=== PATIENT | female | born 1990 | race Caucasian/White ===

== ENCOUNTER → 2018-02-21 | Outpatient (CLI) | payer MEDICARE, MEDICAID ==
--- NOTE | 2018-02-21 17:40 | Diagnostic Imaging Report ---
INDICATION: dates. TECHNIQUE: Multiple real-time grayscale images were obtained over the gravid uterus. COMPARISON: None. FINDINGS: Single live intrauterine is identified with a heart rate of 158 beats per minute. The fetus is in breech presentation. The amniotic fluid volume levels are normal. The placenta is anterior and has a normal appearance. There is no previa or abruption. The spine is poorly visualized due to positioning. Otherwise, no anomalies are seen. Visualized anatomy is unremarkable. Biometric measurements are symmetric. IMPRESSION: 1. Single live intrauterine of 21 weeks 6 days with a due date of 06/28/2018. 2. Breech presentation. 3. Poorly visualized spine, likely due to lie. Biometrical measurements are as follows: Biparietal 4.83 cm, age 20 weeks 5 days. Head circumference 19.56 cm, age 21 weeks 6 days. Abdominal circumference 17.14 cm, age 22 weeks 1 days. Femur length 3.89 cm, age 22 weeks 4 days. Sonographic estimate age: 21 weeks 6 days. Sonographic estimated date of delivery: 06/28/18. Estimated Weight: 480 gm (+/- 70 gm). LMP percentile: 75%. heart rate: 158 beats per minute. number: 1 of 1. Dictated by: Dictated on workstation # [id number]
== END ==
LOC: RAD 14:50
PROVIDERS: ATTEND Obstetrics & Gynecology
DX: O32.1XX0 Maternal care for breech presentation, not applicable or unspecified (principal); Z3A.21 21 weeks gestation of pregnancy
CPT/HCPCS: 76805

== ENCOUNTER → 2018-04-09 | Outpatient (CLI) | payer MEDICARE, MEDICAID ==
--- NOTE | 2018-04-09 18:55 | Diagnostic Imaging Report ---
INDICATION: patient, limited followup study performed to evaluate anatomy not visualized on the previous study. Limited OB sonography performed and compared to the prior study of 02/21/2018. FINDINGS: A single live intrauterine fetus is seen in cephalic presentation with heart rate of 169 beats per minute. Placenta is anterior and grade 1 with no evidence of previa. Views of the spine were re-attempted but were not well seen due to position. Visualized portions of the spine, however, appeared unremarkable. IMPRESSION: Limited views demonstrate poor visualization of the spine but no definite abnormality. Cephalic presentation is noted with heart rate of 169 beats per minute. Dictated by: Dictated on workstation # [id number]
== END ==
LOC: RAD 15:36
PROVIDERS: ATTEND Obstetrics & Gynecology
DX: Z36.89 Encounter for other specified antenatal screening (principal); Z3A.00 Weeks of gestation of pregnancy not specified
CPT/HCPCS: 76805

== ENCOUNTER 2018-06-23 02:06 | Inpatient (IN) | payer MEDICARE, MEDICAID ==
[~2018-06-23] VITALS: Ht 167.6 cm; Wt 114.5 kg
[2018-06-23] VITALS (21 sets, daily range): BP systolic 103–175; BP diastolic 62–100
--- NOTE | 2018-06-23 02:09 | NUR ---
KRISTIN MARRERO presented to unit via WC from ED REGISTRATION, accompanied by STAFF AND S/O, with c/o CONTRACTIONS. KRISTIN MARRERO weighed, gowned, voided, and to bed. EFHM and TOCO applied, VS taken. KRISTIN MARRERO oriented to bed controls, call light, TV, heat, and A/C controls. UP CHANGING AND SUPPLYING U/A. ASSESSMENTS TO FOLLOW PER JUAN CARLOS HOWARD.
--- NOTE | 2018-06-23 02:40 | NUR ---
REPORT OF PT ARRIVAL AND ASSESSMENT. WILL ADMIT FOR LABOR.
[2018-06-23] MEDS ORDERED: D5 LR IV SOLUTION 1,000 ML IV ONE (02:42)
[2018-06-23] MEDS ORDERED: PREN-142 PO (03:20)
[2018-06-23] MEDS ORDERED: D5 LR IV SOLUTION 1,000 ML IV SCH (03:30)
[2018-06-23 03:47] LABS: BASOPHILS % (AUTO) 0 % (0-10); EOSINOPHILS # (AUTO) 0.1 10^3/uL (0.0-0.3); EOSINOPHILS % (AUTO) 1 % (0-10); HEMATOCRIT 33 % (35-52); HEMOGLOBIN 11.1 G/DL (11.5-16.0); LYMPHOCYTES % (AUTO) 24 % (12-44); MEAN CORPUSCULAR HEMOGLOBIN 31 PG (25-34); MEAN CORPUSCULAR HGB CONC 33 G/DL (32-36); MEAN CORPUSCULAR VOLUME 94 FL (80-99); MEAN PLATELET VOLUME 10.7 FL (7.4-10.4); MONOCYTES # (AUTO) 0.8 X 10^3 (0.0-1.0); MONOCYTES % (AUTO) 7 % (0-12); NEUTROPHILS # (AUTO) 8.5 X 10^3 (1.8-7.8); NEUTROPHILS % (AUTO) 69 % (42-75); PLATELET COUNT 190 10^3/uL (130-400); RED CELL DISTRIBUTION WIDTH 13.5 % (10.0-14.5); WHITE BLOOD COUNT 12.4 10^3/uL (4.3-11.0)
--- NOTE | 2018-06-23 03:50 | NUR ---
REPORT TO DR PÉREZ ON SVE. NO NEW ORDERS AT THIS TIME.
--- NOTE | 2018-06-23 05:57 | NUR ---
[facility] CALLED FOR EPIDURAL PER PT REQUEST.
[2018-06-23] MEDS ORDERED: CATHETER FLUSH 10 ML SYR IV SCH (06:00)
--- NOTE | 2018-06-23 06:00 | NUR ---
CALL TO DR PÉREZ TO REPORT 5CM DILATION AND THAT [facility] HAD BEEN CALLED FOR EPIDURAL.
--- NOTE | 2018-06-23 06:07 | NUR ---
SVE DONE. PT 7 CM AND FE[address] PUSHY. DR PÉREZ NOTIFIED AND IS HEADING TO HOSPITAL FOR DELIVERY.
--- NOTE | 2018-06-23 06:20 | NUR ---
DR PÉREZ TO PT ROOM FOR DELIVERY.
[2018-06-23] MEDS ORDERED: PHYTONADIONE (VIT. K) NEONATAL 1 MG/0.5 ML AMP ONE (06:21)
[2018-06-23] MEDS ORDERED: OXYTOCIN/NORMAL SALINE 500 ML IV ONE (06:23)
[2018-06-23] MEDS ORDERED: LIDOCAINE/EPI 2% 1:200,00 (XYLOCAINE) 10 ML VIAL ONE (06:33)
[2018-06-23] MEDS ORDERED: OXYTOCIN/NORMAL SALINE 500 ML IV SCH (06:52)
--- OUTSIDE RECORDS SUMMARY | 2018-06-23 06:52 | XMS REPORT ---
Author Author MILLER CURTIS Organization [facility] [address] Address [address] [place] [address] Care Team Providers Care Refrigeration Houseman Name Role Phone MILLER CURTIS Unavailable PROBLEMS Unknown Problems ALLERGIES No Information ENCOUNTERS Encounter Location Date Diagnosis [facility] [address] [place] [address] [facility] [address] [place] [address] Feb, [facility] [place] [address] [id number] [place] [address] Feb [facility] [address] [id number] [place] [address] Jan Dental examination Z01.20 and Caries K02.9 [facility] [address] [id number] [place] [address] Jan Open fracture of tooth, initial encounter S02.5XXB and Pain, dental K08.89 [facility] [address] [id number] [place] [address] Aug Dental abscess K04.7 IMMUNIZATIONS No Known Immunizations SOCIAL HISTORY Never Assessed REASON FOR VISIT Scheduling appointment PLAN OF CARE VITAL SIGNS MEDICATIONS Unknown Medications RESULTS No Results PROCEDURES No Known procedures INSTRUCTIONS MEDICATIONS ADMINISTERED No Known Medications MEDICAL (GENERAL) HISTORY Type Description Date Medical History bipolar disorder Medical History schizophrenia Medical History ADHD Surgical History Rt knee surgery 2003 Hospitalization History No Hospitalization history information
--- OUTSIDE RECORDS SUMMARY | 2018-06-23 06:52 | XMS REPORT ---
Author Author ERX TERRY Organization [facility] Address [address] [place] [address] Care Team Providers Care Automotive Accessory Installer Name Role Phone REX TERRY Unavailable PROBLEMS Unknown Problems ALLERGIES No Information ENCOUNTERS Encounter Location Date Diagnosis [facility] [address] [place] [address] Feb, [facility] [address] [id number] [place] [address] Feb [facility] [address] [id number] [place] [address] Jan Dental examination Z01.20 and Caries K02.9 [facility] [address] [id number] [place] [address] Jan Open fracture of tooth, initial encounter S02.5XXB and Pain, dental K08.89 [facility] [address] [id number] [place] [address] Aug Dental abscess K04.7 IMMUNIZATIONS No Known Immunizations SOCIAL HISTORY Never Assessed REASON FOR VISIT Requests return call PLAN OF CARE VITAL SIGNS MEDICATIONS Medication Instructions Dosage Frequency Start Date End Date Duration Status Amoxicillin 500 MG Orally every 8 hrs 1 capsule 8h Jan, 7 days Active RESULTS No Results PROCEDURES No Known procedures INSTRUCTIONS MEDICATIONS ADMINISTERED No Known Medications MEDICAL (GENERAL) HISTORY Type Description Date Medical History bipolar disorder Medical History schizophrenia Medical History ADHD Surgical History Rt knee surgery 2003 Hospitalization History No Hospitalization history information
--- OUTSIDE RECORDS SUMMARY | 2018-06-23 06:52 | XMS REPORT ---
Author Author REX TERRY Organization [facility] Address [address] [place] [address] Care Team Providers Care Dean [employer] Name Role Phone REX TERRY Unavailable PROBLEMS Unknown Problems ALLERGIES Substance Reaction Event Type Date Status Latex Unknown Non Drug Allergy Jan, Active ENCOUNTERS Encounter Location Date Diagnosis [facility] [address] [id number] [place] [address] Feb [facility] [address] [id number] [place] [address] Jan Dental examination Z01.20 and Caries K02.9 [facility] [address] [id number] [place] [address] Jan Open fracture of tooth, initial encounter S02.5XXB and Pain, dental K08.89 [facility] [address] [id number] [place] [address] Aug Dental abscess K04.7 IMMUNIZATIONS No Known Immunizations SOCIAL HISTORY Never Assessed REASON FOR VISIT JACQUELINE PLAN OF CARE Activity Details Follow Up prn Reason:TE #22 VITAL SIGNS Height 67 in 2018-02-13 Blood pressure systolic 111 mmHg 2018-02-13 Blood pressure diastolic 67 mmHg 2018-02-13 MEDICATIONS Medication Instructions Dosage Frequency Start Date End Date Duration Status Amoxicillin 500 MG Orally every 8 hrs 1 capsule 8h Jan, 7 days Active Ibuprofen 200 MG Orally Three times a day 1 tablet with food or milk as needed 8h Not-Taking Tylenol 325 MG Orally every 4 hrs 1 tablet as needed 4h Active RESULTS No Results PROCEDURES Procedure Date Ordered Result Body Site LTD ORAL EVALUATION - PROBLEM FOCUS Feb 13, 2018 INTRAORL-PERIAPICAL 1 FILM [id number] Feb 13, 2018 INSTRUCTIONS MEDICATIONS ADMINISTERED No Known Medications MEDICAL (GENERAL) HISTORY Type Description Date Medical History bipolar disorder Medical History schizophrenia Medical History ADHD Surgical History Rt knee surgery 2004 Hospitalization History No Hospitalization history information
--- OUTSIDE RECORDS SUMMARY | 2018-06-23 06:52 | XMS REPORT ---
Demographics Address [address] [address] Preferred Language Unknown Marital Status Unknown Moravian Affiliation Unknown Race Unknown Ethnic Group Unknown Author Author [facility] Address [address] [place] [address] Care Team Providers Care First Officer And Flight Instructor Name Role Phone ARMINDA LUCERO Unavailable PROBLEMS Unknown Problems ALLERGIES No Known Allergies ENCOUNTERS Encounter Location Date Diagnosis [facility] [address] [id number] [place] [address] Jan Dental examination Z01.20 and Caries K02.9 [facility] [address] [id number] [place] [address] Jan Open fracture of tooth, initial encounter S02.5XXB and Pain, dental K08.[address] [id number] [place] [address] Aug Dental abscess K04.7 IMMUNIZATIONS No Known Immunizations SOCIAL HISTORY Never Assessed REASON FOR VISIT Tooth pain--broke tooth 2 days ago lower left side---ANITA ford PLAN OF CARE Activity Details Follow Up prn Reason: VITAL SIGNS Height 67 in 2018-02-13 Weight 226 lbs 2018-02-13 Temperature 97.1 degrees Fahrenheit 2018-02-13 Heart Rate 88 bpm 2018-02-13 Respiratory Rate 18 2018-02-13 BMI 35.39 kg/m2 2018-02-13 Blood pressure systolic 112 mmHg 2018-02-13 Blood pressure diastolic 68 mmHg 2018-02-13 MEDICATIONS Medication Instructions Dosage Frequency Start Date End Date Duration Status Tylenol 325 MG Orally every 4 hrs 1 tablet as needed 4h Active RESULTS No Results PROCEDURES No Known procedures INSTRUCTIONS MEDICATIONS ADMINISTERED No Known Medications MEDICAL (GENERAL) HISTORY Type Description Date Medical History bipolar disorder Medical History schizophrenia Medical History ADHD Surgical History Rt knee surgery 2004 Hospitalization History No Hospitalization history information
--- OUTSIDE RECORDS SUMMARY | 2018-06-23 06:53 | XMS REPORT ---
Author Author RICKI CASTRO Organization [facility] [place] Address [address] [place] [address] Care Team Providers Care Computerized Mill Mill Recorder Name Role Phone RICKI CASTRO Unavailable PROBLEMS Unknown Problems ALLERGIES No Known Allergies ENCOUNTERS Encounter Location Date Diagnosis [facility] [address] [id number] [place] [address] Aug Dental abscess K04.7 IMMUNIZATIONS No Known Immunizations SOCIAL HISTORY Never Assessed REASON FOR VISIT Tooth pain, Pt having tooth pain X 2-3. M.JACQUELIN [place] PLAN OF CARE Activity Details Follow Up prn Reason: VITAL SIGNS Height 67 in 2017-09-13 Weight 208.5 lbs 2017-09-13 Temperature 98.6 degrees Fahrenheit 2017-09-13 Heart Rate 68 bpm 2017-09-13 Respiratory Rate 18 2017-09-13 Oximetry 99 % 2017-09-13 BMI 32.65 kg/m2 2017-09-13 Blood pressure systolic 108 mmHg 2017-09-13 Blood pressure diastolic 70 mmHg 2017-09-13 MEDICATIONS Medication Instructions Dosage Frequency Start Date End Date Duration Status Clindamycin HCl 300 MG Orally every 8 hrs 1 capsule 8h Aug,Aug 07 days Active Tylenol 325 MG Orally every 4 hrs 1 tablet as needed 4h Active Ibuprofen 200 MG Orally Three times a day 1 tablet with food or milk as needed 8h Active RESULTS No Results PROCEDURES No Known procedures INSTRUCTIONS MEDICATIONS ADMINISTERED No Known Medications MEDICAL (GENERAL) HISTORY Type Description Date Medical History bipolar disorder Medical History schizophrenia Medical History ADHD Surgical History Rt knee surgery 2003
[2018-06-23] MEDS ORDERED: TETANUS,DIPTH,PERTUSS P/F (BOOSTRIX) 0.5 ML VIAL IM ONE (07:00)
[2018-06-23] MEDS ORDERED: MEASLES,MUMPS,RUBELLA 1 EA INJ SC ONE (07:00)
[2018-06-23] MEDS ORDERED: oxyCODONE/APAP 5/325MG (PERCOCET 5) TABLET PO PRN (07:00)
[2018-06-23] MEDS ORDERED: BENZOCAINE/MENTHOL (DERMOPLAST) 56 ML CAN TP PRN (07:00)
--- NOTE | 2018-06-23 07:04 | History & Physical ---
History and Physical Date Seen by Provider: Jun 23, 2018 Time Seen by Provider: 06:31 This patient is a 28-year-old white female patient of Dr. Rodriguez who presented in active labor. She has had no problems with his to date. Rupture membranes was confirmed after delivery. GBS culture was negative. I was called to attend patient has Dr. Rodriguez was not available. At the time of my Arrival patient was complaining of a strong urge to push. Allergies are to latex Medications vitamins Medical social and surgical histories are per the antepartum record HEENT exam is normal except for exceedingly poor dentition Neck supple no lymphadenopathy no thyromegaly Abdomen gravid soft nontender nondistended Extremities show no clubbing or cyanosis. Pelvic exam when I arrived showed a cervix dilated presenting part was at the + 3 station vertex. Patient was complaining of strong urge to push Laboratory Tests 06/23/18 02:50 Assessment and plan term at 37 weeks gestation now stage II labor with delivery eminent. 37 week gestation in active labor Allergies and Home Medications Allergies Coded Allergies: latex (Verified Allergy, Severe, RASH, 06/23/18) Home Medications Vit No.124/Iron/FA 1 Each Tablet, 1 EACH PO DAILY, (Reported) Patient Home Medication List Home Medication List Reviewed: Yes Clinical Quality Measures DVT/VTE Risk/Contraindication: Risk Factor Score Per Nursin RFS Level Per Nursing on Admit: 2=Moderate MORALES PÉREZ MD Jun 23, 2018 07:03
[2018-06-23] MEDS ORDERED: DOCU100C37 PO (07:06)
[2018-06-23] MEDS ORDERED: IBUP-1780 PO (07:06)
--- NOTE | 2018-06-23 07:07 | Discharge Instructions ---
Discharge Instructions Discharge Medications New, Converted or Re-Newed RX: RX on Chart Patient Instructions Patient Instructions: As directed Return to The Hospital For: As directed Activity & Diet Discharge Diet: No Restrictions Activity as Tolerated: No Orders-Post D/C & Referrals Follow Up Appt: Call to make follow up appt. for patient in [address] Swanson. Activity Per routine post vaginal delivery instructions. Please call in RX to patient pharmacy. Diet as tolerated Patient may shower or tub bathe as desired. MORALES PÉREZ MD Jun 23, 2018 07:07
[2018-06-23] MEDS ORDERED: FLU QUADRIvalent (5+ YOA) 2018-2019 (AFLURIA) 0.5 ML IM ONE (07:30)
--- NOTE | 2018-06-23 07:45 | NUR ---
THIS RN TO BEDSIDE WITH PREVIOUS RN, SELF INTRODUCED. PT VOICES THE NEED TO GET UP TO THE BATHROOM. PT AMBULATES SELF TO BATHROOM WITH STAND BY ASSIST. + VOID, + PERICARE PER PT. PT BACK TO BED. RECOVERY CONTINUES.
[2018-06-23 07:55] LABS: AMPHETAMINE SCREEN, URINE NEGATIVE (NEGATIVE); BARBITURATE SCREEN URINE NEGATIVE (NEGATIVE); BENZODIAZEPINES SCREEN URINE NEGATIVE (NEGATIVE); CANNABINOID SCREEN, URINE NEGATIVE (NEGATIVE); COCAINE SCREEN URINE NEGATIVE (NEGATIVE); METHADONE STAT NEGATIVE (NEGATIVE); METHAMPHETAMINE SCREEN URINE S NEGATIVE (NEGATIVE); OPIATE SCREEN URINE NEGATIVE (NEGATIVE); OXYCODONE STAT NEGATIVE (NEGATIVE); PROPOXYPHENE STAT NEGATIVE (NEGATIVE); TRICYCLIC ANTIDEPRESSANTS SCRE NEGATIVE (NEGATIVE)
--- NOTE | 2018-06-23 09:25 | NUR ---
PT TRANSFERRED FROM -319 TO -310 VIA AMBULATORY IN STABLE CONDITION ACC BY THIS RN AND S/O. PT TO BED. TEACHING DONE RE: ROOM SURROUNDINGS, ROOM SERVICE, POC. PT VERBALIZES UNDERSTANDING. INITIAL SHIFT ASSESSMENT COMPLETED; SEE INTERVENTION FOR FURTHER. CALL LIGHT WITHIN REACH, NO NEEDS VOICED AT THIS TIME.
[2018-06-23] MEDS: KETOROLAC 30 MG/ML VIAL IV SCH ×2 (09:28→17:32)
--- NOTE | 2018-06-23 09:40 | OPERATIVE REPORT ---
DATE OF SERVICE: 06/23/2018 DELIVERY NOTE The patient delivered by term spontaneous vaginal delivery a viable female infant with Apgars of 8 and 9 at 1 and 5 minutes respectively, weight of 7 pounds, time of 0635 and a cord blood pH that is pending. The was delivered over an intact perineum with no analgesia. The was bulb suctioned on delivery of the head and again on completion of delivery. There was moderate meconium noted. However, the baby had no sequelae to that. The had spontaneous cry, moved all extremities, had excellent tone and reflexes and the heart rate were well over 100s during the labor and during delivery and immediately after delivery. The umbilical cord was doubly clamped, father cut the cord and the baby was passed to mom's abdomen. The placenta delivered very promptly spontaneously Mojica. It was normal with a 3-vessel cord. The cervix, vagina, rectum and perineum were examined and found intact. There were a couple small minor abrasions anterior to the urethra. These were hemostatic and did not require repair. ESTIMATED BLOOD LOSS: Around 150 mL. Sponge and needle counts were correct on completion of delivery and the exam. The patient remained in the LDR for recovery. The baby remained with the mom. Job ID: [id number] DocumentID: [id number] Dictated Date: 06/23/2018 07:12:47 Dairy Associate Date: 06/23/2018 09:40:05 Dictated By: MORALES PÉREZ MD
--- NOTE | 2018-06-23 10:53 | NUR ---
PT IN THE NURSERY SEEING AT THIS TIME.
--- NOTE | 2018-06-23 13:29 | NUR ---
PT IN BED, HOLDING . IV DC'D; SEE INTERVENTION FOR FURTHER. NO NEEDS VOICED. CALL LIGHT WITHIN REACH.
[2018-06-23] MEDS: DOCUSATE SODIUM 100 MG (COLACE) CAP PO SCH ×2 (14:35→21:00)
--- NOTE | 2018-06-23 15:02 | NUR ---
PT AMBULATES SELF OFF UNIT.
--- NOTE | 2018-06-23 15:18 | NUR ---
PT RETURNS BACK TO UNIT.
--- NOTE | 2018-06-23 17:06 | NUR ---
PT SITTING UP ON THE SIDE OF THE BED, VS OBTAINED. VISITORS PRESENT. NO NEEDS VOICED. PT DENIES WANTING MOTRIN OR THE FLU VACCINE.
--- NOTE | 2018-06-23 17:57 | NUR ---
PT INFANT WITH ASSISTANCE PER Abdullahi MIR RN.
--- NOTE | 2018-06-23 18:55 | NUR ---
PT IN BED, TALKING ON THE PHONE, DENIES ANY NEEDS AT THIS TIME.
[2018-06-24 00:45] VITALS: BP 97/65
[2018-06-24] MEDS: KETOROLAC 30 MG/ML VIAL IV SCH ×2 (01:00→10:40)
[2018-06-24 05:15] VITALS: BP 97/53
--- NOTE | 2018-06-24 08:32 | NUR ---
PT IN THE NURSERY, SEEING .
--- NOTE | 2018-06-24 08:44 | NUR ---
PT OUT IN THE HALLWAYS, REQUESTING TO GO DOWNSTAIRS SINCE INFANT IS IN THE NURSERY. PT DENIES THE NEED FOR COLACE, VOICES THAT SHE'S ALREADY HAD A BM AROUND 0600 THIS AM. PT ALSO DENIES MOTRIN, NO PAIN. PT RETURNS TO ROOM TO GET S/O AND THEN AMBULATES OFF UNIT.
[2018-06-24] MEDS: DOCUSATE SODIUM 100 MG (COLACE) CAP PO SCH (08:45)
[2018-06-24] MEDS: IBUPROFEN 800 MG (MOTRIN) TAB PO SCH ×2 (08:45→13:00)
--- NOTE | 2018-06-24 09:11 | NUR ---
PT RETURNS BACK TO UNIT, DR. PÉREZ HERE AND FOLLOWING PT BACK TO ROOM TO SEE PT.
--- NOTE | 2018-06-24 09:17 | Progress Note-Standard ---
Standard Progress Note Progress Notes/Assess & Plan Date Seen by a Provider: Jun 24, 2018 Time Seen by a Provider: 09:16 Progress/Assessment & Plan This patient is without complaint. She is ablating, voiding, tolerating oral intake well has good pain control. Vital Signs Date Time Temp Pulse Resp B/P (MAP) Pulse Ox O2 Delivery O2 Flow Rate FiO2 06/24/18 05:15 97.6 80 16 97/53 (68) 97 06/24/18 00:45 97.8 79 16 97/65 (76) 98 06/23/18 20:10 97.9 87 18 103/63 (76) 98 06/23/18 17:06 98.1 97 18 114/82 (93) 99 Room Air 06/23/18 12:21 97.5 107 18 109/69 (82) 97 Room Air 06/23/18 09:25 97.6 I & O 06/24/18 07:00 Intake Total 1400 mL Balance 1400 ml Vital signs are stable. Patient is afebrile. Fundus is firm below the umbilicus and nontender. Claudio show clubbing or cyanosis. There is no Homans sign. Assessment and plan day number 1 status post term spontaneous vaginal delivery doing well. Plan is routine convalescence care Final Diagnosis 39 week spontaneous vaginal delivery MORALES PÉREZ MD Jun 24, 2018 09:17
--- NOTE | 2018-06-24 10:05 | NUR ---
PT INFANT. DR. VERNON AT THE BEDSIDE, DISCUSSING CARE. PT DENIES ANY NEEDS AT THIS TIME.
[2018-06-24 10:46] VITALS: BP 116/78
--- NOTE | 2018-06-24 10:50 | NUR ---
PT SITTING UP ON THE SIDE OF THE BED UPON THIS RN ENTERING ROOM. VS OBTAINED. INITIAL SHIFT ASSESSMENT COMPLETED; SEE INTERVENTION FOR FURTHER. PT DENIES ANY NEEDS AT THIS TIME.
--- NOTE | 2018-06-24 11:28 | NUR ---
PT AMBULATES OFF UNIT WITH S/O.
--- NOTE | 2018-06-24 15:00 | NUR ---
PT SITTING ON THE SIDE OF THE BED, HOLDING , ON THE PHONE, DENIES ANY NEEDS.
[2018-06-24 16:20] VITALS: BP 113/71
--- NOTE | 2018-06-24 16:20 | NUR ---
PT SITTING UP ON THE SIDE OF THE BED, VS OBTAINED. PT INQUIRING HOW LIKELY DISCHARGE FOR WILL BE TOMORROW, PT INFORMED THAT THIS RN WILL TALK WITH NURSERY STAFF; PT VERBALIZES UNDERSTANDING.
--- NOTE | 2018-06-24 18:38 | NUR ---
PT AMBULATES OFF UNIT IN STABLE CONDITION WITH S/O. PT JUST FINISHED EATING STORK MEAL.
--- NOTE | 2018-06-24 21:00 | NUR ---
pt up ambulating around in room. assessment completed. pt denies any needs. will continue to monitor
[2018-06-24 22:18] VITALS: BP 122/80
--- NOTE | 2018-06-24 23:19 | NUR ---
Report received from Mabel Huerta RN
[2018-06-25 03:00] VITALS: BP 95/64
--- NOTE | 2018-06-25 07:40 | NUR ---
Dr Marcano to see patient and review plan of care.
--- NOTE | 2018-06-25 07:44 | Progress Note-Standard ---
Standard Progress Note Progress Notes/Assess & Plan Date Seen by a Provider: Jun 25, 2018 Time Seen by a Provider: 07:43 Progress/Assessment & Plan This patient is without complaint. She is ablating, voiding, tolerating oral intake well has good pain control. Vital Signs Date Time Temp Pulse Resp B/P (MAP) Pulse Ox O2 Delivery O2 Flow Rate FiO2 06/24/18 05:15 97.6 80 16 97/53 (68) 97 06/24/18 00:45 97.8 79 16 97/65 (76) 98 06/23/18 20:10 97.9 87 18 103/63 (76) 98 06/23/18 17:06 98.1 97 18 114/82 (93) 99 Room Air 06/23/18 12:21 97.5 107 18 109/69 (82) 97 Room Air 06/23/18 09:25 97.6 I & O 06/24/18 07:00 Intake Total 1400 mL Balance 1400 ml Vital signs are stable. Patient is afebrile. Fundus is firm below the umbilicus and nontender. Claudio show clubbing or cyanosis. There is no Homans sign. Assessment and plan day number 1 status post term spontaneous vaginal delivery doing well. Plan is routine convalescence care June 25, 2018 Patient is without complaint. She is ambulating, voiding, tolerating oral intake well has good pain control. Patient is requesting discharge home. Vital Signs Date Time Temp Pulse Resp B/P (MAP) Pulse Ox O2 Delivery O2 Flow Rate FiO2 06/25/18 03:00 98.1 81 18 95/64 (74) 100 Room Air 06/24/18 22:18 97.5 81 18 122/80 (94) Room Air 06/24/18 16:20 97.6 88 18 113/71 (85) 96 Room Air 06/24/18 10:46 97.6 85 18 116/78 (91) 100 Room Air Vital signs are stable. Patient is afebrile. Fundus is firm below the umbilicus and nontender. Extremities show no clubbing or cyanosis. There is no Homans sign. Assessment and plan day number 2 status post term spontaneous vaginal delivery doing well. Plan is for discharge home Final Diagnosis 39 week spontaneous vaginal delivery MORALES PÉREZ MD Jun 25, 2018 07:44
[2018-06-25 08:30] VITALS: BP 103/55
[2018-06-25] MEDS ORDERED: TETANUS,DIPTH,PERTUSS P/F (BOOSTRIX) 0.5 ML VIAL IM ONE (13:27)
--- NOTE | 2018-06-25 13:46 | NUR ---
prescriptions called to [facility] pharmacy [place] per pt request
--- NOTE | 2018-06-25 14:15 | NUR ---
Discharge instructions explained, signed and copy to pt. pt verbalized understanding of instructions and denied questions.
--- NOTE | 2018-06-25 15:00 | NUR ---
Discharged to home. Ambulates self to private vehicle with belongings in hand. Accompanied by staff.
== END 2018-06-25 15:00 | disposition home or self-care (01) | DRG 807 ==
LOC: WSo 02:06 → LDRP 02:07 → WSo 05:59 → LDRP 06:00
PROVIDERS: ADMIT Obstetrics & Gynecology; ATTEND Obstetrics & Gynecology
PROC: 10E0XZZ Delivery of Products of Conception, External Approach (ICD-10-PCS; principal; 2018-06-23)
DX: O99.334 Smoking (tobacco) complicating childbirth (principal); O71.82 Other specified trauma to perineum and vulva; O77.0 Labor and delivery complicated by meconium in amniotic fluid; F17.210 Nicotine dependence, cigarettes, uncomplicated; Z3A.39 39 weeks gestation of pregnancy; Z37.0 Single live birth
CPT/HCPCS: 36415; 80306; 85025; 86850; 86900; 86901; 90715; 99212